=== PATIENT | female | born 1930 | race Caucasian/White ===

== ENCOUNTER 2016-07-10 16:30 | Inpatient (IN) | payer MEDICARE ==
[2016-07-10] VITALS (7 sets, daily range): BP systolic 100–147; BP diastolic 57–90; PULSE 71–109; RESP 18–30; O2SAT 95–98
[~2016-07-10] VITALS: Ht 162.6 cm; Wt 86.1 kg
[~2016-07-10 16:30] MED LIST: CARV25TA2 PO; LEVO75TA36 PO; LOSA50TA37 PO; PANT40TA3 PO; RES15 PO; WARF5TAB7 PO
--- NOTE | 2016-07-10 16:43 | ED.REPORT ---
HPI-Dyspnea / Wheezing Date of Service Jul 10, 2016 ED Provider: Walter Abdul DO Pt is an 85 y/o female anticoagulated on Warfarin w/ a hx of chronic A-fib, ischemic cardiomyopathy, CHF, SARAH, HTN, hyperlipidemia, cerebral aneurysm s/p clipping, presenting to the ED via EMS c/o worsening SOB onset 3-4 days ago. She c/o associated cough, pleuritic abdominal pain, fever. The patient was at a family practice appointment today to have an x-ray at which point her breathing worsened and EMS was called. EMS discovered that her oxygen saturation was i nthe 80s on room air at which point a duoneb was performed which raising her O2 sat to 98%. Pt denies lower extremity edema. She denies history of lung disease , use of home O2, or tobacco use. Nursing Notes Stated Complaint: SOB Nursing Notes Reviewed: Yes Allergies: Coded Allergies: No Known Allergies (Verified , 08/19/15) Scheduled Carvedilol (Carvedilol) 25 Mg Tablet 37.5 MG PO BID Levothyroxine (Levoxyl) Unknown Strength Tablet Unknown Dose PO DAILY Losartan Potassium (Losartan Potassium) 50 Mg Tablet 50 MG PO DAILY Pantoprazole DR (Pantoprazole DR) 40 Mg Tablet.dr 40 MG PO DAILY Warfarin Sodium (Warfarin Sodium) 5 Mg Tablet 5 MG PO 6 days/week Warfarin Sodium (Warfarin Sodium) 5 Mg Tablet 2.5 MG PO Mondays Scheduled PRN Temazepam (Temazepam) 15 Mg Capsule 15-30 MG PO HS PRN PRN For Insomnia General Time Seen by MD: 16:39 Chief Complaint Shortness of breath Hx Obtained From: Patient, EMS Arrived By: Ambulance Sudden in Onset?: No Onset Occurred: 3 days ago Symptom Duration: Since onset Location: : Substernal Quality: Pleuritic Severity: Current: Mild Severity: Maximum: Mild Past Medical History Past Medical History Notes: PCP: Dr. Dion Harper post DC cardioversion 08/14/2015 (Brevital 40 mg for sedation, synchronized 200 J biphasic shock) Past Medical History Cerebral aneurysm in 1979 with clips placed Heart murmur Atrial Fibrillation on Warfarin Ischemic cardiomyopathy History of sleep apnea Reports: Congestive heart failure, Hyperlipidemia, Hypertension Reports: Atrial fibrillation, Thyroid disease Past Surgical History Cerebral aneurysm in 1979 with clips placed Reports: Knee replacement Smoking History Former Smoker Social History Alcohol Use: Denies alcohol use Drug Use: Denies drug use Ambulatory Status Independent Review of Systems Constitutional: Reports: Fever Respiratory: Reports: Non-productive cough, Pleuritic pain, Shortness of breath Cardiovascular: Denies: Chest pain Complete sys rev & neg: except as marked. GI: Denies: Abdominal pain, Nausea, Vomiting Physical Exam Initial Vital Signs Vital Signs (First) Date Time Temp Pulse Resp B/P Pulse Ox O2 Delivery O2 Flow Rate FiO2 07/10/16 16:49 38.3 109 30 143/90 95 Nasal Cannula 2 Initial VS: Reviewed, Vital signs abnormal Head / Eyes: Atraumatic, Normocephalic, PERRL ENT: Mucous membranes moist, Conjunctiva normal, No scleral icterus Abdomen / GI: Soft, Non-tender Extremities: Vascular intact, Neuro intact, No swelling, No tenderness Skin: Warm, Dry, No cyanosis Neurologic: Alert, Oriented, Nonfocal Psychiatric: Mood/affect normal, Behavior normal, Normal thought content General/Constitutional: Awake, Alert, No acute distress, Cooperative, Not toxic appearing Neck: Atraumatic, Supple, No meningismus, Full range of motion Respiratory / Chest: Atraumatic, Breath sounds = bilat, No respiratory distress , No retractions Expiratory wheezes and rales at the bases Cardiovascular: Heart rate NL, Regular rhythm, Heart sounds NL, No gallop, No murmurs, No rubs, Cap refill not delayed, Peripheral circulation NL Interpretation & Diagnostics Lab Results Interpretation Result Diagram: 07/10/16 1723 07/10/16 1723 Test 07/10/16 17:23 White Blood Count 6.7th/mm3 (3.8-10.1) Red Blood Count 3.78mil/mm3 (3.90-5.20) Hemoglobin 12.2g/dL (12.0-15.6) Hematocrit 37.2% (35.0-46.0) Mean Corpuscular Volume 98.4fL (81-100) Mean Corpuscular Hemoglobin 32.3pg (27.0-35.0) Mean Corpuscular Hemoglobin Concent 32.8% (32.0-37.0) Red Cell Distribution Width 12.3% (12.3-15.4) Platelet Count 113bil/L (150-400) Neutrophils (%) (Auto) 74.6% (40-74) Lymphocytes (%) (Auto) 15.6% (14-46) Monocytes (%) (Auto) 8.8% (4-12) Eosinophils (%) (Auto) 0.3% (0-5) Basophils (%) (Auto) 0.6% (0-3) Prothrombin Time 18.7sec (8.1-12.5) Prothromb Time International Ratio 1.73ratio Sodium Level 139mEq/L (134-144) Potassium Level 4.3mEq/L (3.5-5.2) Chloride Level 100mEq/L (97-108) Carbon Dioxide Level 23mmol/L (18-29) Blood Urea Nitrogen 14mg/dL (8-27) Creatinine 0.79mg/dL (0.57-1.00) Estimat Glomerular Filtration Rate 99mL/min (>59) Glucose Level 140mg/dL (60-99) Lactic Acid Level 1.1mmol/L (0.4-2.0) Calcium Level 9.3mg/dL (8.5-10.1) Total Bilirubin 0.4mg/dL (0.0-1.2) Aspartate Amino Transf (AST/SGOT) 21U/L (0-50) Alanine Aminotransferase (ALT/SGPT) 16U/L (0-32) Alkaline Phosphatase 50U/L (25-165) Troponin T < 0.010ug/L (0.0-0.011) Pro-B-Type Natriuretic Peptide 6766pg/mL (0-738) Total Protein 7.3g/dL (6.4-8.4) Albumin 4.4g/dL (3.4-5.0) ECG Interpretation ECG Interpretation: Atrial fibrillation rate 104 LVH with secondary repol abnormality No change from 01/23/16 Time: 17:15 Interpreted by: ED physician Normal ECG Interpretation: No acute ischemic changes, No change from prior ECGs X-Ray Chest Interpretation Chest Xray Interpretation: IMPRESSION: Low lung volumes, with bilateral perihilar atelectasis versus pneumonia. Dictated by: Katty Nicolas M.D. on 07/10/2016 at 18:01 Approved by: Katty Nicolas M.D. on 07/10/2016 at 18:02 View: Portable, 1 view Interpretation / Wet Read by: Interpret - Radiologist Re-Eval/Medical Decision Med Decision/Clinical Course Hypoxia and fever, currently awaiting further evaluation. Care transferred to Dr. Santa Counseled Regarding: Diagnosis, Lab results, Need for admission Discharge & Departure Impression: Primary Impression: Bilateral pneumonia Pneumonia type: due to unspecified organism Lung location: lower lobe of lung Qualified Code: J18.9 - Pneumonia, unspecified organism Additional Impression: CHF (congestive heart failure) Congestive heart failure type: unspecified congestive heart failure type Congestive heart failure chronicity: chronic Qualified Code: I50.9 - Heart failure, unspecified Disposition: ADMITTED TO HOSPITAL Discharge Condition All VS Reviewed: Yes Condition: Stable Referrals: Joey Coyne MD (PCP) Care Transferred to: Dr. Omega Santa Care Transferred at: 18:00 Lincolnibdavid Attestation Portions of this note were transcribed by Diaz Aguirre. I, Dr. Abdul personally performed the history, physical exam and medical decision-making; I reviewed and confirmed the accuracy of the information in the transcribed note. Signed by Samia Mota, 07/10/16 - 1700 copies to: Joey Coyne MD, Timothy S DO Jul 10, 2016 16:43 DIAZ AGUIRRE Jul 10, 2016 16:45
[2016-07-10] MEDS ORDERED: Albuterol-Ipratropium 3 mL Inhalation Solution NEB ONE ×2 (17:10→19:20)
[2016-07-10 17:40] LABS: BASOPHILS % (AUTO) 0.6 % (0-3); EOSINOPHILS % (AUTO) 0.3 % (0-5); MONOCYTES % (AUTO) 8.8 % (4-12); Mean Corpuscular Hemoglobin 32.3 pg (27.0-35.0); Mean Corpuscular Volume 98.4 fL (81-100); NEUTROPHILS % (AUTO) 74.6 % (40-74); Platelet Count 113 bil/L (150-400)
[2016-07-10 17:41] LABS: INR 1.73 ratio
[2016-07-10] MEDS ORDERED: 0.9% Sodium Chloride 1,000 ML IV ONE (17:50)
[2016-07-10 17:51] LABS: TROPONIN T < 0.010 ug/L (0.0-0.011)
--- NOTE | 2016-07-10 18:04 | DRSVH ---
PROCEDURE: X-RAY CHEST ONE VIEW, PORTABLE ([id number]) INDICATIONS: SHORT OF BREATH TECHNIQUE: One view of the chest was acquired. COMPARISON: [facility], CR, XR CHEST 1VW (PORTABLE), 01/23/2016, 8:52. FINDINGS: Surgical changes and devices: None. Lungs and pleura: No pleural effusions or pneumothorax. Lung volumes are low with bilateral perihila r atelectasis versus pneumonia. Mediastinum: Mediastinal contours appear normal. Heart size is normal. Bones and chest wall: No suspicious bony lesions. Overlying soft tissues appear unremarkable. IMPRESSION: Low lung volumes, with bilateral perihilar atelectasis versus pneumonia. Dictated by: Katty Nicolas M.D. on 07/10/2016 at 18:01 Approved by: Katty Nicolas M.D. on 07/10/2016 at 18:02
[2016-07-10] MEDS ORDERED: cefTRIAXone Inj 2,000 MG in Dextrose 5% Minibag Plus 50 ML IV ONE (18:10)
[2016-07-10] MEDS ORDERED: Azithromycin Inj 500 MG in Dextrose 5% w/Vial Mate 250 ML IV ONE (20:05)
[2016-07-10] MEDS ORDERED: FUR20 PO (20:47)
[2016-07-10] MEDS ORDERED: LEVO75TA4 PO (20:47)
[2016-07-10] MEDS ORDERED: SACU1TAB7 PO (20:47)
[2016-07-10] MEDS ORDERED: MULT-140 PO (20:58)
[2016-07-10] MEDS ORDERED: WARF4TAB6 PO (20:58)
[2016-07-10] MEDS ORDERED: IBUP200C PO (20:58)
[2016-07-10] MEDS ORDERED: SODI126M NS (20:59)
[2016-07-10] MEDS ORDERED: Alum-Mag Hydrox-Simeth 30 mL Suspension PO PRN (21:35)
[2016-07-10] MEDS ORDERED: Polyethylene Glycol (PEG) 17 Gm Powder PO PRN (21:35)
[2016-07-10] MEDS: 0.9% Sodium Chloride 1,000 ML IV SCH ×2 (21:35→22:33)
[2016-07-10 22:09] LABS: Magnesium 1.9 mg/dL (1.6-2.6)
[2016-07-10] MEDS ORDERED: Azithromycin Inj 500 MG in Dextrose 5% w/Vial Mate 250 ML IV SCH (22:30)
[2016-07-10] MEDS ORDERED: Sodium Chloride NAS 45 mL Spray NASAL PRN (23:45)
--- NOTE | 2016-07-10 23:46 | PCM.HPMED ---
Subjective Date of Service Jul 10, 2016 Primary Provider: Admitting Physician: Aleena Rebolledo MD Primary Care Physician: Joey Coyne MD Attending Physician: Aleena Rebolledo MD Admit Status: From the Emergency Department Chief Complaint: cough History of Present Illness: 85-year-old female patient with history of atrial fibrillation on chronic anticoagulation, CHF, hypothyroidism and hypertension presented to the ER for worsening cough and shortness of breath. Patient reports that approximately 1-1 /2 weeks ago she began experiencing chest tightness, fatigue, worsening dry cough. She states that she was seen by her primary care provider this morning and had an x-ray, but states she was not informed of any pneumonia present on the chest x-ray. Patient reports that she went home to [place] but noticed that she was having increasing difficulty with her breathing and asked her manager media to bring her to the ER. Patient denies any fevers, chills, sore throat , nausea, vomiting or diarrhea. Patient reports chronic constipation. Patient reports she has not consumed much food today, and notes that she only has some appetite. Patient reports that she has chronic nasal congestion and sneezing which she uses nasal saline drops to assist. Patient denies any headache, otalgia, or myalgias. Patient does report that her chest wall has been causing her pain, which she attributes to her constant coughing. She reports that she feels short of breath but denies needing supplemental oxygen at home. Vital signs in the ER, temperature 38.3, pulse 109, respiratory rate 30, blood pressure 143/90, pulse ox 95 on nasal cannula 2 L Review of Systems: A comprehensive review of systems was conducted with the patient and found to be negative except as above in the History of Present Illness. Allergies Coded Allergies: No Known Allergies (Verified , 07/10/16) Home Medications Carvedilol 25 mg, 1.5 tablets twice a day Entresto 49 mg 51 mg tablet, 1 tablet twice a day Furosemide 40 mg 1 tablet daily when necessary Levothyroxin 50 MCG, 1 tablet daily Pantoprazole 40 mg, 1 tablet daily Temazepam 15 mg 1 tablet daily at bedtime Warfarin 5-7.5 mg daily Cholestyramine 4 g daily Triamcinolone as needed PMH Congestive heart failure--- most recent echo 06/04/2016 Nonischemic cardiomyopathy Major depressive disorder Hypertension Hypothyroidism Atrial fibrillation Chronic anticoagulation with warfarin Chronic knee pain Benign paroxysmal vertigo Obstructive sleep apnea Hyperlipidemia GERD Insomnia Cerebral aneurysm, 1985 Osteoarthritis Restless leg syndrome Surgical History Total knee surgery Cerebral aneurysm requiring clipping Unilateral oophorectomy Appendectomy Tonsillectomy Lens implantation Cardiac catheterization 2007 Family History Father-congestive heart failure, myocardial infarction Mother-healthy Siblings-renal failure, cancer, cardiac arrest Social History 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 ) Hx Substance Use: No Hx Tobacco Use: Yes (quit smoking in 1978, smoked for 20 years 1-2 packs daily) Smoking Status: Former Smoker Living Arrangement: Assisted Living ([place]) Exam Vital Signs Vital Sign - Last Date Time Temp Pulse Resp B/P Pulse Ox O2 Delivery O2 Flow Rate FiO2 07/10/16 22:02 36.7 85 18 114/80 95 Nasal Cannula 3.00 Exam General: No acute distress, well-developed, well-nourished, appropriately interactive HEENT: Normocephalic, atraumatic. External ears without defect. Pupils equal, round, and reactive to light and accommodation. Moist conjunctivae. Oropharynx with moist mucosa. Neck: Supple with full range of motion.No lymphadenopathy Cardiovascular: Regular rate and rhythm with no murmurs, rubs, or gallops appreciated Pulmonary: Mild crackles bilaterally at bases and diffuse end-expiratory wheezes bilaterally. Normal respiratory effort with no use of accessory muscles. Abdomen: Bowel tones present. Soft, nontender, nondistended. Extremities: No clubbing, cyanosis, edema, appreciated. Skin: Normal temperature, turgor, and texture; no rash, ulcers, or subcutaneous nodules appreciated. Psychiatric: Normal mood and affect. Alert and oriented to person, place, and time. Lab and Diagnostics Result Diagram: 07/10/16 1723 07/10/16 1723 Microbiology Microbiology [facility] INFLUENZA RAPID AG SCREEN Final 07/10/16-2005 RESULT POSITIVE FOR FLU A NEGATIVE FOR FLU B This rapid assay is a screen test only for Influenza A&B and does not definitively rule out the presence of FLU A & B or other respiratory viral pathogens. The assay's sensitivity varies on the specimen type submitted. Nasal washes are optimum. Recommend respiratory viral cultures and DFA to confirm negative screens and rule out other viral pathogens. Per CDC, the sensitivity of this method is approximately 50% for H1N1. A negative result does NOT rule out Novel H1N1 (Swine Flu) TIME CALLED: 2004 FLOOR/DOCTOR: SRI/JJ Busch X-Rays, CTs and MRIs PROCEDURE: X-RAY CHEST ONE VIEW, PORTABLE ([id number]) INDICATIONS: SHORT OF BREATH TECHNIQUE: One view of the chest was acquired. COMPARISON: [facility], CR, XR CHEST 1VW (PORTABLE), 01/23/2016, 8: 52. FINDINGS: Surgical changes and devices: None. Lungs and pleura: No pleural effusions or pneumothorax. Lung volumes are low with bilateral perihilar atelectasis versus pneumonia. Mediastinum: Mediastinal contours appear normal. Heart size is normal. Bones and chest wall: No suspicious bony lesions. Overlying soft tissues appear unremarkable. IMPRESSION: Low lung volumes, with bilateral perihilar atelectasis versus pneumonia. Dictated by: Katty Nicolas M.D. on 07/10/2016 at 18:01 Approved by: Katty Nicolas M.D. on 07/10/2016 at 18:02 Assessment & Plan Acute influenza A, present on admission, ongoing -Positive rapid flu swab for Flu A. Pt reports getting the influenza vaccine this season. -Patient received a dose of Tamiflu 75 mg in the ER -Patient to continue with Tamiflu 75 mg twice a day for 10 doses -Isolation precautions in place -Supportive care Acute community acquired pneumonia, present on admission, ongoing -Chest x-ray in ER demonstrating bilateral perihilar elective cyst versus pneumonia -No leukocytosis, normal lactic acid, normal pro-calcitonin -Patient received azithromycin and ceftriaxone in the ER, we will continue with these therapies -Legionella and strep pneumoniae pending, blood cultures pending -MRSA screen pending, sputum cultures pending -Duo nebs 4 times a day while awake, albuterol nebs every 2 hours when necessary -Continue to monitor -Gentle hydration with NS 60mls/hr. Chronic atrial fibrillation, presumed stable -Patient is managed by Dr. Doug Crow of cardiology -Continue home dose of carvedilol -Continue warfarin, pharmacy to dose Chronic congestive heart failure, presumed stable -Outpatient records demonstrate most recent echo was 06/04/2016. Demonstrated EF of 35-40%. Moderate global hypokinesis left ventricle. Left and right atrium dilated. Moderate MR, mild aortic stenosis, moderate aortic regurgitation. -Patient is receiving gentle hydration with NS 60mls/hr -We will continue to monitor for fluid overload Chronic hypothyroidism, presumed stable -Continue home dose of levothyroxine Chronic hypertension, presumed stable -Continue home dose of Entresto GERD -Continue home dose of pantoprazole PCP: Dr. Joey Coyne Cardiology: Dr. Doug Crow CODE STATUS: Compressions and Cardioversion OK. DO NOT INTUBATE. Patient is admitted under inpatient status with expected length of stay greater than 2 midnights due to severity of presenting symptoms, risk of adverse event, and complexity of treatment plan. VTE Prophylaxis: Theraputic Anticoag with Warfarin Resuscitation Status: Limited Interventions Limited Interventions: Compressions, Cardioversion/Defibrillation copies to: Joey Coyne MD, Tara L DO Jul 10, 2016 23:03
[2016-07-11] VITALS (16 sets, daily range): BP systolic 103–145; BP diastolic 55–84; PULSE 66–94; RESP 17–22; O2SAT 92–96
--- NOTE | 2016-07-11 00:29 | NUR ---
ADMIT NOTE/ARRIVAL TO [facility] Admission info and med rec completed in ER prior to pt arriving to [facility]. Pt is alert and oriented. Pt arrived to [facility] 3030 approx 2200. Pt able to ambulate from ER stretcher to bed. Pt transported on 3L. Pt changed to wall oxygen, 3L humidified, decreased to 2L. Pt has SARAH, pt asked family to bring in CPAP. Pt on oxygen and CPOx. VS obtained. Pt placed on remote telemetry, monitoring manager notified. Pt on droplet precautions for + Influenza A, contact precautions for R/O MRSA per nasal swab screen. Admit MD called to order home medications, medications ordered and administered. Pt asked to bring in home medication Entresto, as pharmacy does not stock. Continue to monitor. Call light in reach. Intentional rounding.
[2016-07-11] MEDS: Albuterol-Ipratropium 3 mL Inhalation Solution NEB SCH ×5 (01:13→20:41)
--- NOTE | 2016-07-11 01:44 | PCM.CONPHA ---
Subjective Date of Service: Jul 10, 2016 Requesting Provider: Tayler Huntley Reason for Pharmacy Consult: Anticoagulation Management Objective Vital Signs Date Time Temp Pulse Resp B/P Pulse Ox O2 Delivery O2 Flow Rate FiO2 07/11/16 01:14 74 22 96 Nasal Cannula 2.00 07/11/16 01:04 37.1 75 18 103/55 96 Nasal Cannula 2.00 07/10/16 23:13 71 98 Nasal Cannula 2.00 07/10/16 22:49 Supplement Oxygen 07/10/16 22:02 36.7 85 18 114/80 95 Nasal Cannula 3.00 07/10/16 21:50 83 25 100/57 96 Nasal Cannula 3 07/10/16 20:26 38 95 23 111/64 95 Nasal Cannula 3 07/10/16 18:01 97 24 147/88 95 Nasal Cannula 2 07/10/16 17:43 100 24 97 07/10/16 16:49 38.3 109 30 143/90 95 Nasal Cannula 2 Intake and Output 07/09/16 07/10/16 07/11/16 00:00 00:00 00:00 Intake Total 1000 ml Balance 1000 ml Weight (Kilograms): 86.800 Height (Feet): 5 Height (Inches): 4.00 Test 07/10/16 17:23 White Blood Count 6.7th/mm3 (3.8-10.1) Red Blood Count 3.78mil/mm3 (3.90-5.20) Hemoglobin 12.2g/dL (12.0-15.6) Hematocrit 37.2% (35.0-46.0) Mean Corpuscular Volume 98.4fL (81-100) Mean Corpuscular Hemoglobin 32.3pg (27.0-35.0) Mean Corpuscular Hemoglobin Concent 32.8% (32.0-37.0) Red Cell Distribution Width 12.3% (12.3-15.4) Platelet Count 113bil/L (150-400) Neutrophils (%) (Auto) 74.6% (40-74) Lymphocytes (%) (Auto) 15.6% (14-46) Monocytes (%) (Auto) 8.8% (4-12) Eosinophils (%) (Auto) 0.3% (0-5) Basophils (%) (Auto) 0.6% (0-3) Prothrombin Time 18.7sec (8.1-12.5) Prothromb Time International Ratio 1.73ratio D-Dimer < 0.5mg/L (<0.50) Sodium Level 139mEq/L (134-144) Potassium Level 4.3mEq/L (3.5-5.2) Chloride Level 100mEq/L (97-108) Carbon Dioxide Level 23mmol/L (18-29) Blood Urea Nitrogen 14mg/dL (8-27) Creatinine 0.79mg/dL (0.57-1.00) Estimat Glomerular Filtration Rate 99mL/min (>59) Glucose Level 140mg/dL (60-99) Lactic Acid Level 1.1mmol/L (0.4-2.0) Calcium Level 9.3mg/dL (8.5-10.1) Magnesium Level 1.9mg/dL (1.6-2.6) Total Bilirubin 0.4mg/dL (0.0-1.2) Aspartate Amino Transf (AST/SGOT) 21U/L (0-50) Alanine Aminotransferase (ALT/SGPT) 16U/L (0-32) Alkaline Phosphatase 50U/L (25-165) Troponin T < 0.010ug/L (0.0-0.011) Pro-B-Type Natriuretic Peptide 6766pg/mL (0-738) Total Protein 7.3g/dL (6.4-8.4) Albumin 4.4g/dL (3.4-5.0) Procalcitonin 0.05ng/mL (0.00-0.08) Assessment/Plan Assessment/Plan A: * Warfarin dosing by pharmacy for 85 y/o woman with chronic atrial fibrillation * She is here for influenza and pneumonia * Pertinent history includes CHF and HTN * The patient takes warfarin 4 mg daily * INR on 07/10 is subtherapeutic at 1.73 * Significant drug interactions with warfarin include azithromycin and ceftriaxone P: * Giving one dose of warfarin 4 mg * Target INR range of 2 - 3 * Pharmacy to determine further dosing based on INR results Thank you. Pharmacy will continue to follow this patient. Yaritza Sheth, PharmD Yaritza Sheth Jul 11, 2016 01:44
--- NOTE | 2016-07-11 06:36 | NUR ---
OXYGEN NEEDS Pt has been on 2L for most of shift. Towards end of shift, pt states, "I can't stand this oxygen, I want if off." Pt trialed on RA. Pts oxygen saturation occasionally 88-89% on RA, but up to low 90s when awake. When pt asleep, pt unable to maintain oxygen saturations above 90%. Pt placed back on oxygen, now at 1L, 93%. CPOx in use. Continue to monitor.
[2016-07-11 07:00] LABS: BASOPHILS % (AUTO) 0.5 % (0-3); EOSINOPHILS % (AUTO) 0.7 % (0-5); MONOCYTES % (AUTO) 14.5 % (4-12); Mean Corpuscular Hemoglobin 32.9 pg (27.0-35.0); Mean Corpuscular Volume 100.6 fL (81-100); NEUTROPHILS % (AUTO) 62.3 % (40-74); Platelet Count 86 bil/L (150-400)
[2016-07-11 07:25] LABS: INR 1.62 ratio
--- NOTE | 2016-07-11 07:42 | PCM.PHAPRO ---
Progress cough NTV RTM 1-Jul 2-Jul 1.73 1.62 -0.11 4 4 Adam Cordon Jul 11, 2016 07:42
[2016-07-11] MEDS: Pantoprazole 40 mg ER24 Tablet PO SCH (07:47)
[2016-07-11] MEDS ORDERED: POTA10TA38 PO (10:01)
[2016-07-11] MEDS ORDERED: QUE9 PO (10:02)
[2016-07-11] MEDS ORDERED: KEN25CR EXT (10:03)
[2016-07-11] MEDS ORDERED: LOSA50TA37 PO (10:04)
[2016-07-11] MEDS: Sacubitril/Valsartan (Entresto 49 mg-51 mg Tablet) PO SCH ×3 (11:20→20:04)
[2016-07-11] MEDS: Albuterol 2.5 mg/3 mL Inhalation Solution NEB PRN ×2 (11:56→23:17)
[2016-07-11 14:14] LABS: COLOR,URINE YELLOW (YELLOW)
[2016-07-11 14:15] LABS: APPEARANCE,URINE CLEAR (CLEAR,HAZY); OCCULT BLOOD,URINE TRACE (NEGATIVE); UROBILINOGEN,URINE NORMAL (NORMAL)
--- NOTE | 2016-07-11 15:13 | NUR ---
Social Work: Initial Assessment Data: Pt is an 85 y/o female admitted for pneumonia with hypoxia. Pt's PCP is Dr Coyne, pt's insurance is Medicare with [employer] supp. Readmit score not listed. EMR reviewed. MOLD STRIPPER met with pt at bedside, role explained. Pt states that she lives at [facility] where there are no stairs and she uses a Cpap and owns a walker, but rarely uses it. Pt sates she drives, has no hx of HH, has been to [facility], and has LT insurance. Pt states she has no VA benefits and is not a caregiver. Pt states she has been up in her room moving around a bit. Pt agreeable to HH if needed. HH choice list given. Pt states no preference of company if needed. MOLD STRIPPER will continue to follow for possible HH need. Pt reports having a DPOA/AD, MOLD STRIPPER requested a copy for hospital. Assessment: Pt who is independent at baseline. Plan: Pt will d/c home via POV when medically stable with possible HH. MOLD STRIPPER will continue to follow. DEENA Castillo Addendum: 07/11/16 at 1517 by ILAINA HUBBARD Amended: Links added.
--- NOTE | 2016-07-11 15:47 | PCM.PNMED ---
Subjective Date of Service Jul 11, 2016 Subjective says overall feeling better. had some chills last night. main complaint this am is nasal congestion Exam Vital Signs Vital Sign - Last Date Time Temp Pulse Resp B/P Pulse Ox O2 Delivery O2 Flow Rate FiO2 07/11/16 14:45 Supplement Oxygen 07/11/16 13:37 36.8 76 18 131/74 94 0.50 Intake and Output 07/10/16 07/10/16 07/11/16 Cumulative From/Thru 15:00 23:00 07:00 07/10/16 16:49 - 07/11/16 06:31 Intake Total 1000 ml 583 ml 1583 ml Balance 1000 ml 583 ml 1583 ml Intake Oral 200 ml 200 ml IV Total 1000 ml 383 ml 1383 ml # Voids 2 2 General: Alert, Oriented X3, Cooperative, No Acute Distress Head: Normal Eyes: Scleral Anicteric Nose: Mucous Membr Moist/[place] Mouth: Mucous Membr Moist/[place] Neck: Supple Chest & Lungs: Chest Wall Normal, Expiratory wheezes (mild bilat) Cardiovascular: Regular Rate/Rhythm Abdomen: Non-tender, Non-distended, Normoactive bowel tones, Soft Extremities: No cyanosis/clubbing/edma bilat Neurological: Grossly Neurologically Intact, Normal Speech IVs and Medications Medications Reviewed: Medications were reviewed in detail Lab and Diagnostics Result Diagram: 07/11/1664707/11/16647 Microbiology Microbiology [facility] INFLUENZA RAPID AG SCREEN Final 07/10/16-2005 RESULT POSITIVE FOR FLU A NEGATIVE FOR FLU B This rapid assay is a screen test only for Influenza A&B and does not definitively rule out the presence of FLU A & B or other respiratory viral pathogens. The assay's sensitivity varies on the specimen type submitted. Nasal washes are optimum. Recommend respiratory viral cultures and DFA to confirm negative screens and rule out other viral pathogens. Per CDC, the sensitivity of this method is approximately 50% for H1N1. A negative result does NOT rule out Novel H1N1 (Swine Flu) TIME CALLED: 2004 FLOOR/DOCTOR: SRI/JJ Busch X-Rays, CTs and MRIs PROCEDURE: X-RAY CHEST ONE VIEW, PORTABLE ([id number]) INDICATIONS: SHORT OF BREATH TECHNIQUE: One view of the chest was acquired. COMPARISON: [facility], CR, XR CHEST 1VW (PORTABLE), 01/23/2016, 8: 52. FINDINGS: Surgical changes and devices: None. Lungs and pleura: No pleural effusions or pneumothorax. Lung volumes are low with bilateral perihilar atelectasis versus pneumonia. Mediastinum: Mediastinal contours appear normal. Heart size is normal. Bones and chest wall: No suspicious bony lesions. Overlying soft tissues appear unremarkable. IMPRESSION: Low lung volumes, with bilateral perihilar atelectasis versus pneumonia. Dictated by: Katty Nicolas M.D. on 07/10/2016 at 18:01 Approved by: Katty Nicolas M.D. on 07/10/2016 at 18:02 Assessment & Plan 85-year-old female patient with history of atrial fibrillation on chronic anticoagulation, CHF, hypothyroidism and hypertension presented to the ER for worsening cough and shortness of breath. Patient reports that approximately 1-1 /2 weeks ago she began experiencing chest tightness, fatigue, worsening dry cough. She states that she was seen by her primary care provider this morning and had an x-ray, but states she was not informed of any pneumonia present on the chest x-ray. Patient reports that she went home to [place] but noticed that she was having increasing difficulty with her breathing and asked her credentialing manager to bring her to the ER. # Acute influenza A, present on admission, ongoing - Positive rapid flu swab for Flu A - continue with Tamiflu 75 mg twice a day for 10 doses - Supportive care # Suspected acute community acquired pneumonia, present on admission - Bacterial pneumonia clinically appears unlikely. No leukocytosis, normal lactic acid, normal pro-calcitonin - Patient received azithromycin and ceftriaxone on admission - stop Abx and f/u clinically - Legionella and strep pneumoniae negative - c/w DuoNeb while awake, albuterol nebs every 2 hours when necessary # Chronic atrial fibrillation, presumed stable - Patient is managed by Dr. Doug Crow as outpatient - Continue home dose of carvedilol - Continue warfarin, pharmacy to dose - f/u daily INR (currently subtherapeutic) # Chronic congestive heart failure, presumed stable - Outpatient records demonstrate most recent echo was 06/04/2016. Demonstrated EF of 35-40%. Moderate global hypokinesis left ventricle. Left and right atrium dilated. Moderate MR, mild aortic stenosis, moderate aortic regurgitation. - We will continue to monitor for fluid overload # Chronic hypothyroidism, presumed stable - Continue home dose of levothyroxine # Chronic hypertension, presumed stable - Continue home dose of Entresto # GERD - Continue home dose of pantoprazole VTE Prophylaxis: Theraputic Anticoag with Warfarin Resuscitation Status: Limited Interventions Limited Interventions: Compressions, Cardioversion/Defibrillation Time spent 30 min Osvaldo Cho Jul 11, 2016 15:47
[2016-07-11] MEDS ORDERED: cefTRIAXone Inj 2,000 MG in Dextrose 5% Minibag Plus 50 ML IV SCH ×4 (18:30)
[2016-07-11] MEDS ORDERED: Azithromycin Inj 500 MG in Dextrose 5% w/Vial Mate 250 ML IV SCH (20:30)
[2016-07-12] VITALS (11 sets, daily range): BP systolic 125–136; BP diastolic 64–88; PULSE 65–92; RESP 18–22; O2SAT 92–94
[2016-07-12] MEDS: Albuterol 2.5 mg/3 mL Inhalation Solution NEB PRN (05:59)
[2016-07-12 06:56] LABS: BASOPHILS % (AUTO) 0.5 % (0-3); EOSINOPHILS % (AUTO) 1.6 % (0-5); MONOCYTES % (AUTO) 14.3 % (4-12); Mean Corpuscular Hemoglobin 32.3 pg (27.0-35.0); Mean Corpuscular Volume 99.2 fL (81-100); NEUTROPHILS % (AUTO) 50.9 % (40-74); Platelet Count 105 bil/L (150-400)
[2016-07-12 07:11] LABS: INR 1.66 ratio
[2016-07-12] MEDS: Albuterol-Ipratropium 3 mL Inhalation Solution NEB SCH ×4 (07:35→19:51)
[2016-07-12] MEDS: Pantoprazole 40 mg ER24 Tablet PO SCH (08:27)
[2016-07-12] MEDS: Sacubitril/Valsartan (Entresto 49 mg-51 mg Tablet) PO SCH ×2 (08:29→19:46)
--- NOTE | 2016-07-12 09:28 | NUR ---
PARESH signed DEENA Castillo
--- NOTE | 2016-07-12 11:40 | PCM.CONPHA ---
Subjective Date of Service: Jul 12, 2016 atrial fibrillation Reason for Pharmacy Consult: Anticoagulation Management Objective Vital Signs Date Time Temp Pulse Resp B/P Pulse Ox O2 Delivery O2 Flow Rate FiO2 07/12/16 09:51 69 22 92 Nasal Cannula 07/12/16 09:00 CPAP/BIPAP 07/12/16 08:53 37.2 71 20 125/64 93 Room Air 07/12/16 08:00 73 07/12/16 06:00 75 18 93 Room Air 07/12/16 01:19 36.4 71 18 128/68 94 Room Air 07/11/16 23:17 94 18 94 Room Air 07/11/16 21:20 36.4 78 18 133/77 92 CPAP 07/11/16 21:01 CPAP/BIPAP 07/11/16 20:42 85 18 93 Room Air 07/11/16 20:00 91 07/11/16 17:08 36.8 85 18 145/84 93 Room Air 07/11/16 16:24 74 18 96 Nasal Cannula 0.50 07/11/16 14:45 Supplement Oxygen 07/11/16 13:37 36.8 76 18 131/74 94 Nasal Cannula 0.50 07/11/16 11:57 76 18 94 Nasal Cannula 0.50 Intake and Output 07/10/16 07/11/16 07/12/16 00:00 00:00 00:00 Intake Total 1000 ml 1183 ml Balance 1000 ml 1183 ml Weight (Kilograms): 85.900 Height (Feet): 5 Height (Inches): 4.00 Test 07/10/16 17:23 07/11/16 06:48 07/11/16 14:00 07/12/16 06:40 D-Dimer < 0.5mg/L (<0.50) Hemoglobin A1c 5.6% (4.8-5.6) Lactic Acid Level 1.1mmol/L (0.4-2.0) Magnesium Level 1.9mg/dL (1.6-2.6) Troponin T < 0.010ug/L (0.0-0.011) Pro-B-Type Natriuretic Peptide 6766pg/mL (0-738) Sodium Level 140mEq/L (134-144) Potassium Level 4.0mEq/L (3.5-5.2) Chloride Level 104mEq/L (97-108) Carbon Dioxide Level 25mmol/L (18-29) Blood Urea Nitrogen 14mg/dL (8-27) Creatinine 0.73mg/dL (0.57-1.00) Estimat Glomerular Filtration Rate 109mL/min (>59) Glucose Level 98mg/dL (60-99) Calcium Level 8.3mg/dL (8.5-10.1) Total Bilirubin 0.3mg/dL (0.0-1.2) Aspartate Amino Transf (AST/SGOT) 18U/L (0-50) Alanine Aminotransferase (ALT/SGPT) 11U/L (0-32) Alkaline Phosphatase 38U/L (25-165) Total Protein 5.6g/dL (6.4-8.4) Albumin 3.7g/dL (3.4-5.0) Procalcitonin 0.19ng/mL (0.00-0.08) Urine Color Yellow (YELLOW) Urine Appearance Clear (CLEAR,HAZY) Urine pH 6.0 (5.0-8.0) Urine Specific [place] 1.020 (1.003-1.035) Urine Protein Negativemg/dL (NEG,TRACE) Urine Glucose (UA) Negativemg/dL (NEGATIVE) Urine Ketones Negativemg/dL (NEGATIVE) Urine Occult Blood Trace (NEGATIVE) Urine Nitrite Negative (NEGATIVE) Urine Bilirubin Negative (NEGATIVE) Urine Urobilinogen Normalmg/dL (NORMAL) Urine Leukocyte Esterase Negative (NEGATIVE) Urine RBC 0-2/hpf (0-2) Urine WBC 0-5/hpf (0-5) Urine Epithelial Cells Occasional/hpf (NONE-MOD) Urine Crystals None seen (NONE SEEN) Urine Bacteria Few/hpf (NONE-FEW) Urine Hyaline Casts None/lpf (NONE) Urine Granular Casts None seen (NONE SEEN) Urine Waxy Casts None seen (NONE SEEN) Urine Red Blood Cell Casts None seen (NONE SEEN) Urine White Blood Cell Casts None seen (NONE SEEN) Urine Mucus None seen (None Seen) Urine Trichomonas None seen (NONE SEEN) Urine Yeast None (NONE SEEN) Urinalysis Comment None Urine Culture Reflexed Not indicated Urine Legionella pneumophilia Ag Negative (Negative) White Blood Count 4.4th/mm3 (3.8-10.1) Red Blood Count 3.59mil/mm3 (3.90-5.20) Hemoglobin 11.6g/dL (12.0-15.6) Hematocrit 35.6% (35.0-46.0) Mean Corpuscular Volume 99.2fL (81-100) Mean Corpuscular Hemoglobin 32.3pg (27.0-35.0) Mean Corpuscular Hemoglobin Concent 32.6% (32.0-37.0) Red Cell Distribution Width 12.3% (12.3-15.4) Platelet Count 105bil/L (150-400) Neutrophils (%) (Auto) 50.9% (40-74) Lymphocytes (%) (Auto) 32.5% (14-46) Monocytes (%) (Auto) 14.3% (4-12) Eosinophils (%) (Auto) 1.6% (0-5) Basophils (%) (Auto) 0.5% (0-3) Prothrombin Time 17.9sec (8.1-12.5) Prothromb Time International Ratio 1.66ratio Assessment/Plan Assessment/Plan Assessment: * Patient is needing warfarin management for atrial fibrillation. * Patient received warfarin 4 mg on 07/11/16 after the INR dropped slightly to 1.62 * Patient's INR goal range: 2-3 * Patient's INR on 07/12/16: 1.66 * Patient's INR remains below the goal range, but is moving in the right direction after the first 2 doses. Plan: * Will give warfarin 4 mg on 07/12/16 and will reevaluate with the PT/INR tomorrow. * Will continue to follow. Jem Cooney Jul 12, 2016 11:40
[2016-07-12] MEDS: predniSONE 20 mg Tablet PO SCH (12:47)
--- NOTE | 2016-07-12 16:26 | PCM.PNMED ---
Subjective Date of Service Jul 12, 2016 Subjective complains of generalized weakness and worsening SOB Exam Vital Signs Vital Sign - Last Date Time Temp Pulse Resp B/P Pulse Ox O2 Delivery O2 Flow Rate FiO2 07/12/16 14:06 36.4 71 18 129/79 92 Room Air 07/11/16 16:24 0.50 Intake and Output 07/11/16 07/11/16 07/12/16 Cumulative From/Thru 15:00 23:00 07:00 07/10/16 16:49 - 07/12/16 06:46 Intake Total 600 ml 400 ml 2583 ml Output Total 550 ml 550 ml Balance 600 ml -150 ml 2033 ml Intake Oral 600 ml 400 ml 1200 ml IV Total 1383 ml Output Urine Total 550 ml 550 ml # Voids 3 5 Exam General: Alert, Oriented X3, Cooperative, No Acute Distress Head: Normal Eyes: Scleral Anicteric Nose: Mucous Membr Moist/[place] Mouth: Mucous Membr Moist/[place] Neck: Supple Chest & Lungs: Chest Wall Normal, Expiratory/inspiratory wheezes bilat (worse than yesterday) Cardiovascular: Regular Rate/Rhythm Abdomen: Non-tender, Non-distended, Normoactive bowel tones, Soft Extremities: No cyanosis/clubbing/edema bilat Neurological: Grossly Neurologically Intact, Normal Speech IVs and Medications Medications Reviewed: Medications were reviewed in detail Lab and Diagnostics Result Diagram: 07/12/16 0640 07/11/16 0648 Microbiology Microbiology [facility] INFLUENZA RAPID AG SCREEN Final 07/10/16-2005 RESULT POSITIVE FOR FLU A NEGATIVE FOR FLU B This rapid assay is a screen test only for Influenza A&B and does not definitively rule out the presence of FLU A & B or other respiratory viral pathogens. The assay's sensitivity varies on the specimen type submitted. Nasal washes are optimum. Recommend respiratory viral cultures and DFA to confirm negative screens and rule out other viral pathogens. Per CDC, the sensitivity of this method is approximately 50% for H1N1. A negative result does NOT rule out Novel H1N1 (Swine Flu) TIME CALLED: 2004 FLOOR/DOCTOR: SRI/JJ Busch X-Rays, CTs and MRIs PROCEDURE: X-RAY CHEST ONE VIEW, PORTABLE ([id number]) INDICATIONS: SHORT OF BREATH TECHNIQUE: One view of the chest was acquired. COMPARISON: [facility], CR, XR CHEST 1VW (PORTABLE), 01/23/2016, 8: 52. FINDINGS: Surgical changes and devices: None. Lungs and pleura: No pleural effusions or pneumothorax. Lung volumes are low with bilateral perihilar atelectasis versus pneumonia. Mediastinum: Mediastinal contours appear normal. Heart size is normal. Bones and chest wall: No suspicious bony lesions. Overlying soft tissues appear unremarkable. IMPRESSION: Low lung volumes, with bilateral perihilar atelectasis versus pneumonia. Dictated by: Katty Nicolas M.D. on 07/10/2016 at 18:01 Approved by: Katty Nicolas M.D. on 07/10/2016 at 18:02 Assessment & Plan 85-year-old female patient with history of atrial fibrillation on chronic anticoagulation, CHF, hypothyroidism and hypertension presented to the ER for worsening cough and shortness of breath. Patient reports that approximately 1-1 /2 weeks ago she began experiencing chest tightness, fatigue, worsening dry cough. She states that she was seen by her primary care provider this morning and had an x-ray, but states she was not informed of any pneumonia present on the chest x-ray. Patient reports that she went home to [place] [employer] but noticed that she was having increasing difficulty with her breathing and asked her energy and sustainability manager to bring her to the ER. # Acute influenza A, present on admission, ongoing - Positive rapid flu swab for Flu A - continue with Tamiflu 75 mg twice a day for 10 doses - Supportive care # pulmonary congestion and SOB initially Suspected acute community acquired pneumonia but likely 2ndry to acute influenza noted above. present on admission - Bacterial pneumonia clinically appears unlikely. No leukocytosis, normal lactic acid, normal pro-calcitonin - Patient received azithromycin and ceftriaxone on admission - hold Abx and f/u clinically - Legionella and strep pneumoniae negative - c/w DuoNeb while awake, albuterol nebs every 2 hours when necessary - start short course of Prednisone and f/u # Chronic atrial fibrillation, presumed stable - Patient is managed by Dr. Doug Crow as outpatient - Continue home dose of carvedilol - Continue warfarin, pharmacy to dose - f/u daily INR (currently subtherapeutic) # Chronic congestive heart failure, presumed stable - Outpatient records demonstrate most recent echo was 06/04/2016. Demonstrated EF of 35-40%. Moderate global hypokinesis left ventricle. Left and right atrium dilated. Moderate MR, mild aortic stenosis, moderate aortic regurgitation. - We will continue to monitor for fluid overload # Chronic hypothyroidism, presumed stable - Continue home dose of levothyroxine # Chronic hypertension, presumed stable - Continue home dose of Entresto # GERD - Continue home dose of pantoprazole Dispo: 1-2 days VTE Prophylaxis: Theraputic Anticoag with Warfarin Resuscitation Status: Limited Interventions Limited Interventions: Compressions, Cardioversion/Defibrillation Time spent 30 min Osvaldo Cho Jul 12, 2016 16:26
--- NOTE | 2016-07-12 19:00 | NUR ---
Breathing/Lung sounds /Activity: Patients lung sounds have improved since this morning. She was started on steroids this afternoon. Her lungs sound noticeably less wheezy and coarse on expiration. Patient ambulated in the [facility] [place] with the FWW with the nurse this evening without issues. Her MRSA nasal swab was negative. She is on Droplet precautions for influenza A.
--- NOTE | 2016-07-12 23:02 | NUR ---
headache Pt complained of headache, tylenol given with good results. Left room with call light at bedside.
[2016-07-13] VITALS (12 sets, daily range): BP systolic 127–137; BP diastolic 64–79; PULSE 60–93; RESP 18–22; O2SAT 92–98
[2016-07-13] MEDS: Albuterol-Ipratropium 3 mL Inhalation Solution NEB SCH ×4 (06:00→19:55)
[2016-07-13 06:14] LABS: INR 1.72 ratio
[2016-07-13] MEDS: Pantoprazole 40 mg ER24 Tablet PO SCH (08:44)
[2016-07-13] MEDS: predniSONE 20 mg Tablet PO SCH (08:44)
[2016-07-13] MEDS: Sacubitril/Valsartan (Entresto 49 mg-51 mg Tablet) PO SCH ×2 (08:47→20:05)
--- NOTE | 2016-07-13 12:10 | PCM.PHAPRO ---
Progress Warfarin Management by Pharmacy: -Indication: afib -Inr Goal: 2-3 -concurrent anticoagulation: none -Home Dose: warfarin 4mg -Coag Trends: NTV RTM WLG SLF 1-Jul 2-Jul 3-Jul 13-Jul 1.73 1.62 1.66 1.72 -0.11 0.04 0.06 4 4 4 4MG -Plan: inr is progressing to goal. will continue with warfarin 4mg this evening and monitor Milena Dee [facility] Jul 13, 2016 12:10
--- NOTE | 2016-07-13 16:55 | NUR ---
Discharge plan Pt wants to wait until Friday morning to discharge. She feels that it would be better for her that way. Pt started on IS, Educated how to use IS and goal of 1500 10x hour. Pt has been ambulating independent in room and to BR.
--- NOTE | 2016-07-13 17:17 | PCM.PNMED ---
Subjective Date of Service Jul 13, 2016 Subjective complains of generalized weakness. denies any new issues/complaints Exam Vital Signs Vital Sign - Last Date Time Temp Pulse Resp B/P Pulse Ox O2 Delivery O2 Flow Rate FiO2 07/13/16 16:58 CPAP/BIPAP 07/13/16 16:12 79 22 97 07/13/16 14:57 36.2 132/76 07/11/16 16:24 0.50 Intake and Output 07/12/16 07/12/16 07/13/16 Cumulative From/Thru 15:00 23:00 07:00 07/10/16 16:49 - 07/13/16 06:29 Intake Total 472 ml 300 ml 3355 ml Output Total 550 ml Balance 472 ml 300 ml 2805 ml Intake Oral 472 ml 300 ml 1972 ml IV Total 1383 ml Output Urine Total 550 ml # Voids 3 2 10 Exam General: Alert, Oriented x 3, Cooperative, No Acute Distress Head: Normal Eyes: Scleral Anicteric Nose: Mucous Membr Moist/[place] Mouth: Mucous Membr Moist/[place] Neck: Supple Chest & Lungs: Chest Wall Normal, Expiratory/inspiratory wheezes bilat (worse than yesterday) Cardiovascular: Regular Rate/Rhythm Abdomen: Non-tender, Non-distended, Normoactive bowel tones, Soft Extremities: No cyanosis/clubbing/edema bilat Neurological: Grossly Neurologically Intact, Normal Speech IVs and Medications Medications Reviewed: Medications were reviewed in detail Lab and Diagnostics Result Diagram: 07/12/16 0640 07/11/16 0648 Microbiology Microbiology [facility] INFLUENZA RAPID AG SCREEN Final 07/10/16-2005 RESULT POSITIVE FOR FLU A NEGATIVE FOR FLU B This rapid assay is a screen test only for Influenza A&B and does not definitively rule out the presence of FLU A & B or other respiratory viral pathogens. The assay's sensitivity varies on the specimen type submitted. Nasal washes are optimum. Recommend respiratory viral cultures and DFA to confirm negative screens and rule out other viral pathogens. Per CDC, the sensitivity of this method is approximately 50% for H1N1. A negative result does NOT rule out Novel H1N1 (Swine Flu) TIME CALLED: 2004 FLOOR/DOCTOR: SED/JJ Busch X-Rays, CTs and MRIs PROCEDURE: X-RAY CHEST ONE VIEW, PORTABLE ([id number]) INDICATIONS: SHORT OF BREATH TECHNIQUE: One view of the chest was acquired. COMPARISON: [facility], CR, XR CHEST 1VW (PORTABLE), 01/23/2016, 8: 52. FINDINGS: Surgical changes and devices: None. Lungs and pleura: No pleural effusions or pneumothorax. Lung volumes are low with bilateral perihilar atelectasis versus pneumonia. Mediastinum: Mediastinal contours appear normal. Heart size is normal. Bones and chest wall: No suspicious bony lesions. Overlying soft tissues appear unremarkable. IMPRESSION: Low lung volumes, with bilateral perihilar atelectasis versus pneumonia. Dictated by: Katty Nicolas M.D. on 07/10/2016 at 18:01 Approved by: Katty Nicolas M.D. on 07/10/2016 at 18:02 Assessment & Plan 85-year-old female patient with history of atrial fibrillation on chronic anticoagulation, CHF, hypothyroidism and hypertension presented to the ER for worsening cough and shortness of breath. Patient reports that approximately 1-1 /2 weeks ago she began experiencing chest tightness, fatigue, worsening dry cough. She states that she was seen by her primary care provider this morning and had an x-ray, but states she was not informed of any pneumonia present on the chest x-ray. Patient reports that she went home to [place] but noticed that she was having increasing difficulty with her breathing and asked her radiology manager to bring her to the ER. # Acute influenza A, present on admission, ongoing - Positive rapid flu swab for Flu A - continue with Tamiflu 75 mg twice a day for 10 doses - Supportive care # pulmonary congestion and SOB initially Suspected acute community acquired pneumonia but likely 2ndry to acute influenza noted above. present on admission - Bacterial pneumonia clinically appears unlikely. No leukocytosis, normal lactic acid, normal pro-calcitonin - Patient received azithromycin and ceftriaxone on admission - hold Abx and f/u clinically - Legionella and strep pneumoniae negative - c/w DuoNeb while awake, albuterol nebs every 2 hours when necessary - c/w short course of Prednisone (started on 07/12) # Chronic atrial fibrillation, presumed stable - Patient is managed by Dr. Doug Crow as outpatient - Continue home dose of carvedilol - Continue warfarin, pharmacy to dose - f/u daily INR (currently subtherapeutic) # Chronic congestive heart failure, presumed stable - Outpatient records demonstrate most recent echo was 06/04/2016. Demonstrated EF of 35-40%. Moderate global hypokinesis left ventricle. Left and right atrium dilated. Moderate MR, mild aortic stenosis, moderate aortic regurgitation. - We will continue to monitor for fluid overload # Chronic hypothyroidism, presumed stable - Continue home dose of levothyroxine # Chronic hypertension, presumed stable - Continue home dose of Entresto # GERD - Continue home dose of pantoprazole Dispo: 1-2 days VTE Prophylaxis: Theraputic Anticoag with Warfarin Resuscitation Status: Limited Interventions Limited Interventions: Compressions, Cardioversion/Defibrillation Time spent 25 min Osvaldo Cho Jul 13, 2016 17:17
[2016-07-14] VITALS (10 sets, daily range): BP systolic 100–138; BP diastolic 68–76; PULSE 57–98; RESP 18–22; O2SAT 92–97
--- NOTE | 2016-07-14 02:29 | NUR ---
Activity Pt ambulated independently down [facility] and back, complained of some SOB with walking. Pt returned to bed and took breathing tx and medications. Left room with call light at bedside.
[2016-07-14 06:25] LABS: INR 1.72 ratio
--- NOTE | 2016-07-14 07:15 | PCM.PHAPRO ---
Progress Warfarin Management by Pharmacy: -Indication: afib -Inr Goal: 2-3 -concurrent anticoagulation: none -Home Dose: warfarin 4mg -Coag Trends: -Jul 11-Jul 12-Jul 13-Jul 14-Jul 1.73 1.62 1.66 1.72 1.72 -0.11 0.04 0.06 4 4 4 4MG 5MG -Plan: will give one time dose this evening of warfarin 5mg Milena Dee [facility] Jul 14, 2016 07:15
[2016-07-14] MEDS: Sacubitril/Valsartan (Entresto 49 mg-51 mg Tablet) PO SCH ×2 (08:00→20:30)
[2016-07-14] MEDS: Pantoprazole 40 mg ER24 Tablet PO SCH (08:00)
[2016-07-14] MEDS: predniSONE 20 mg Tablet PO SCH (08:02)
--- NOTE | 2016-07-14 09:25 | NUR ---
PARESH signed DEENA Castillo
[2016-07-14] MEDS: Albuterol-Ipratropium 3 mL Inhalation Solution NEB SCH ×5 (09:32→19:40)
--- NOTE | 2016-07-14 15:39 | PCM.PNMED ---
Subjective Date of Service Jul 14, 2016 Subjective says feeling better today but still with chest tightness and cough Exam Vital Signs Vital Sign - Last Date Time Temp Pulse Resp B/P Pulse Ox O2 Delivery O2 Flow Rate FiO2 07/14/16 14:02 36.4 58 19 100/68 92 Room Air 07/11/16 16:24 0.50 Intake and Output 07/13/16 07/13/16 07/14/16 Cumulative From/Thru 15:00 23:00 07:00 07/10/16 16:49 - 07/14/16 06:38 Intake Total 1300 ml 350 ml 5005 ml Output Total 850 ml 1400 ml Balance 1300 ml -500 ml 3605 ml Intake Oral 1300 ml 350 ml 3622 ml IV Total 1383 ml Output Urine Total 850 ml 1400 ml # Voids 3 13 Exam General: Alert, Cooperative, No Acute Distress Head: Normal Eyes: Scleral Anicteric Nose: Mucous Membr Moist/[place] Mouth: Mucous Membr Moist/[place] Neck: Supple Chest & Lungs: Chest Wall Normal, Expiratory/inspiratory wheezes bilat ( improved compared to yesterday) Cardiovascular: Regular Rate/Rhythm Abdomen: Non-tender, Non-distended, Normoactive bowel tones, Soft Extremities: No cyanosis/clubbing/edema bilat Neurological: Grossly Neurologically Intact, Normal Speech IVs and Medications Medications Reviewed: Medications were reviewed in detail Lab and Diagnostics Result Diagram: 07/12/1640 07/11/16 0648 Microbiology Microbiology [facility] INFLUENZA RAPID AG SCREEN Final 07/10/16-2005 RESULT POSITIVE FOR FLU A NEGATIVE FOR FLU B This rapid assay is a screen test only for Influenza A&B and does not definitively rule out the presence of FLU A & B or other respiratory viral pathogens. The assay's sensitivity varies on the specimen type submitted. Nasal washes are optimum. Recommend respiratory viral cultures and DFA to confirm negative screens and rule out other viral pathogens. Per CDC, the sensitivity of this method is approximately 50% for H1N1. A negative result does NOT rule out Novel H1N1 (Swine Flu) TIME CALLED: 2004 FLOOR/DOCTOR: SRI/JJ Busch X-Rays, CTs and MRIs PROCEDURE: X-RAY CHEST ONE VIEW, PORTABLE ([id number]) INDICATIONS: SHORT OF BREATH TECHNIQUE: One view of the chest was acquired. COMPARISON: Located Within [facility], CR, XR CHEST 1VW (PORTABLE), 01/23/2016, 8: 52. FINDINGS: Surgical changes and devices: None. Lungs and pleura: No pleural effusions or pneumothorax. Lung volumes are low with bilateral perihilar atelectasis versus pneumonia. Mediastinum: Mediastinal contours appear normal. Heart size is normal. Bones and chest wall: No suspicious bony lesions. Overlying soft tissues appear unremarkable. IMPRESSION: Low lung volumes, with bilateral perihilar atelectasis versus pneumonia. Dictated by: Katty Nicolas M.D. on 07/10/2016 at 18:01 Approved by: Katty Nicolas M.D. on 07/10/2016 at 18:02 Assessment & Plan 85-year-old female patient with history of atrial fibrillation on chronic anticoagulation, CHF, hypothyroidism and hypertension presented to the ER for worsening cough and shortness of breath. Patient reports that approximately 1-1 /2 weeks ago she began experiencing chest tightness, fatigue, worsening dry cough. She states that she was seen by her primary care provider this morning and had an x-ray, but states she was not informed of any pneumonia present on the chest x-ray. Patient reports that she went home to [place] but noticed that she was having increasing difficulty with her breathing and asked her agriculture sales account manager to bring her to the ER. # Acute influenza A, present on admission, ongoing - Positive rapid flu swab for Flu A - continue with Tamiflu 75 mg twice a day for 10 doses - Supportive care # pulmonary congestion and SOB initially Suspected acute community acquired pneumonia but likely 2ndry to acute influenza noted above. present on admission - Bacterial pneumonia clinically appears unlikely. No leukocytosis, normal lactic acid, normal pro-calcitonin - Patient received azithromycin and ceftriaxone on admission - hold Abx and f/u clinically - Legionella and strep pneumoniae negative - c/w DuoNeb while awake, albuterol nebs every 2 hours when necessary - c/w short course of Prednisone (started on 07/12) # Chronic atrial fibrillation, presumed stable - Patient is managed by Dr. Doug Crow as outpatient - Continue home dose of carvedilol - Continue warfarin, pharmacy to dose - f/u daily INR (currently subtherapeutic) # Chronic congestive heart failure, presumed stable - Outpatient records demonstrate most recent echo was 06/04/2016. Demonstrated EF of 35-40%. Moderate global hypokinesis left ventricle. Left and right atrium dilated. Moderate MR, mild aortic stenosis, moderate aortic regurgitation. - We will continue to monitor for fluid overload # Chronic hypothyroidism, presumed stable - Continue home dose of levothyroxine # Chronic hypertension, presumed stable - Continue home dose of Entresto # GERD - Continue home dose of pantoprazole Dispo: likely home in am VTE Prophylaxis: Theraputic Anticoag with Warfarin Resuscitation Status: Limited Interventions Limited Interventions: Compressions, Cardioversion/Defibrillation Osvaldo Cho Jul 14, 2016 15:39
--- NOTE | 2016-07-14 16:30 | NUR ---
Activity Pt reports continuing to feel weaker/more SOB with exertion than baseline, Pt ambulated in hallways X2 this shift wearing mask for flu precautions and took shower once tele D/C'd. Pt reported feeling slight improvement after activity/shower.
--- NOTE | 2016-07-14 16:36 | NUR ---
Social Work: Readiness for d/c Data: Pt is on day 4 of hospitalization. EMR reviewed. Pt discussed in rounds. MD states pt likely to d/c today or tomorrow. STAFFING SPECIALIST met with pt at bedside regarding d/c plan. Pt states she has been up and moving independently but that she wants to make sure that she has what she needs from [facility] before she discharges. No further d/c planning needs at this time. STAFFING SPECIALIST will continue to follow. Assessment: Pt who is independent at baseline. Plan: Pt will d/c home via POV when medically stable, likely today or tomorrow. No further d/c planning needs at this time. STAFFING SPECIALIST will continue to follow. DEENA Castillo
[2016-07-15 07:01] VITALS: BP 124/71; PULSE 60; RESP 18; O2SAT 93
[2016-07-15 08:01] LABS: INR 1.79 ratio
[2016-07-15] MEDS: Pantoprazole 40 mg ER24 Tablet PO SCH (08:12)
[2016-07-15] MEDS: predniSONE 20 mg Tablet PO SCH (08:13)
[2016-07-15] MEDS: Sacubitril/Valsartan (Entresto 49 mg-51 mg Tablet) PO SCH (08:14)
[2016-07-15 08:47] VITALS: PULSE 74; RESP 20; O2SAT 94
[2016-07-15] MEDS: Albuterol-Ipratropium 3 mL Inhalation Solution NEB SCH (08:47)
--- NOTE | 2016-07-15 10:57 | PCM.DIMED ---
Discharge Instructions Date of Service Jul 15, 2016 Dates of Hospitalization Jul 10, 2016 at 20:17 Discharge Diagnosis Discharge Diagnosis # Acute influenza A, present on admission - Post treatment with Tamiflu # Pulmonary congestion and shortness of breath initially suspected acute community acquired pneumonia but likely due to acute influenza noted above. Improving # Chronic atrial fibrillation, stable - Chronic anticoagulation with Warfarin with sub-therapeutic INR on presentation , ongoing - INR currently sub-therapeutic at 1.79 (goal INR 2-3) # Chronic congestive heart failure, presumed stable # Chronic hypothyroidism, presumed stable # Chronic hypertension, stable # GERD, stable. Diet Low fat, Low Sodium, Heart Healthy Activity No restrictions Call your provider Fever or Chills, Shortness of breath, Chest pain, Excessive diarrhea Patient Instructions Seek immediate medical attention if any new or worsening signs or symptoms occur. Follow-up plan 1. Followup with primary care provider in 3-7 days 2. Followup with [facility] in 1-2 days to recheck INR and adjust Warfarin dose as needed. Follow-up Provider: Joey Coyne MD, Masoud Jul 15, 2016 10:57
--- NOTE | 2016-07-15 11:56 | NUR ---
Discharge Reviewed d/c instructions with pt including care notes, no new prescriptions, pt signed and given originals, copies to chart. IV d/c intact, no tele. Home med from drawer returned to pt. VS stable at time of d/c. All belongings being packed by pt in room, and son is to poultry picker pt at 1300. Care continues. Addendum: 07/15/16 at 1306 by RIVKA SARABIA RN pt taken off unit via WC by HALIMA to car, son to drive pt home. All belongings taken with pt, VS stable at d/c.
--- NOTE | 2016-07-15 12:36 | NUR ---
Social Work-discharge: Data:EMR reviewed. Pt is on day 5 of hospitalization for pneumonia per H&P. Pt is medically stable for discharge today. Pt has been up independent in her room per RN notes. SW confirmed plan of return to [place] today. Pt's son to provide transport back. No other discharge needs identified. All updated and agreeable to plan. Assessment:Pt who is independent at baseline. Plan:Pt to discharge back to [place] today via POV. No other discharge needs identified. All updated and agreeable to plan. DEENA Arthur
--- NOTE | 2016-07-15 15:50 | NUR ---
spiritual care: routine (late entry) lenghty conversational visit. pt reflected on her medical situation, fear over symptoms (jemma breathlessness jemma over weekend) and impact of her diagnosis and treatment. pt reassured by staff about medication continuity as she discharges. 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
--- NOTE | 2016-07-15 16:29 | PCM.DC.MED ---
Discharge Summary Date of Service Jul 15, 2016 Dates of Hospitalization Date of Hospital Admission Jul 10, 2016 at 20:17 Date of Discharge: Jul 15, 2016 Providers: Admitting Physician: Aleena Rebolledo MD Primary Care Physician: Joey Coyne MD Attending Physician: Aleena Rebolledo MD Diagnosis at Time of Discharge Diagnosis at Time of Discharge # Acute influenza A, present on admission - Post treatment with Tamiflu # Pulmonary congestion and shortness of breath initially suspected acute community acquired pneumonia but likely due to acute influenza noted above. Improving # Chronic atrial fibrillation, stable - Chronic anticoagulation with Warfarin with sub-therapeutic INR on presentation , ongoing - INR currently sub-therapeutic at 1.79 (goal INR 2-3) # Chronic congestive heart failure, presumed stable # Chronic hypothyroidism, presumed stable # Chronic hypertension, stable # GERD, stable. Procedures XRay, CTs & MRIs PROCEDURE: X-RAY CHEST ONE VIEW, PORTABLE ([id number]) INDICATIONS: SHORT OF BREATH TECHNIQUE: One view of the chest was acquired. COMPARISON: [facility], , XR CHEST 1VW (PORTABLE), 01/23/2016, 8: 52. FINDINGS: Surgical changes and devices: None. Lungs and pleura: No pleural effusions or pneumothorax. Lung volumes are low with bilateral perihilar atelectasis versus pneumonia. Mediastinum: Mediastinal contours appear normal. Heart size is normal. Bones and chest wall: No suspicious bony lesions. Overlying soft tissues appear unremarkable. IMPRESSION: Low lung volumes, with bilateral perihilar atelectasis versus pneumonia. Dictated by: Katty Nicolas M.D. on 07/10/2016 at 18:01 Approved by: Katty Nicolas M.D. on 07/10/2016 at 18:02 Brief History As noted in H&P by Dr. Hunltey: 85-year-old female patient with history of atrial fibrillation on chronic anticoagulation, CHF, hypothyroidism and hypertension presented to the ER for worsening cough and shortness of breath. Patient reports that approximately 1-1 /2 weeks ago she began experiencing chest tightness, fatigue, worsening dry cough. She states that she was seen by her primary care provider this morning and had an x-ray, but states she was not informed of any pneumonia present on the chest x-ray. Patient reports that she went home to [place] but noticed that she was having increasing difficulty with her breathing and asked her online project manager to bring her to the ER. Patient denies any fevers, chills, sore throat , nausea, vomiting or diarrhea. Patient reports chronic constipation. Patient reports she has not consumed much food today, and notes that she only has some appetite. Patient reports that she has chronic nasal congestion and sneezing which she uses nasal saline drops to assist. Patient denies any headache, otalgia, or myalgias. Patient does report that her chest wall has been causing her pain, which she attributes to her constant coughing. She reports that she feels short of breath but denies needing supplemental oxygen at home. Vital signs in the ER, temperature 38.3, pulse 109, respiratory rate 30, blood pressure 143/90, pulse ox 95 on nasal cannula 2 L Hospital Course # Acute influenza A, present on admission, ongoing - Positive rapid flu swab for Flu A - Treated with Tamiflu 75 mg twice a day for 9 doses # pulmonary congestion and SOB initially Suspected acute community acquired pneumonia but likely 2ndry to acute influenza noted above. present on admission - Bacterial pneumonia clinically appears unlikely. No leukocytosis, normal lactic acid, normal pro-calcitonin - Patient received azithromycin and ceftriaxone on admission - hold Abx and f/u clinically - Legionella and strep pneumoniae negative - Treated with DuoNeb while awake, albuterol nebs every 2 hours when necessary - also treated with short course of Prednisone (started on 07/12 to 07/15/16) - by day of d/c lung exam is only notable for mild expiratory wheeze bilat. she denies any further SOB and expresses eagerness to go home. # Chronic atrial fibrillation, presumed stable - Patient is managed by Dr. Doug Crow as outpatient - Continue home dose of carvedilol - Continue warfarin, pharmacy to dose - f/u daily INR (currently subtherapeutic) # Chronic congestive heart failure, presumed stable - Outpatient records demonstrate most recent echo was 06/04/2016. Demonstrated EF of 35-40%. Moderate global hypokinesis left ventricle. Left and right atrium dilated. Moderate MR, mild aortic stenosis, moderate aortic regurgitation. # Chronic hypothyroidism, presumed stable - Continue home dose of levothyroxine # Chronic hypertension, presumed stable - Continue home dose of Entresto # GERD - Continue home dose of pantoprazole Exam Vital Signs (Last) Date Time Temp Pulse Resp B/P Pulse Ox O2 Delivery O2 Flow Rate FiO2 07/15/16 08:47 74 20 94 Room Air 07/15/16 07:01 36.6 124/71 07/11/16 16:24 0.50 Test 07/10/16 17:23 07/11/16 06:48 07/11/16 14:00 07/12/16 06:40 D-Dimer < 0.5mg/L (<0.50) Hemoglobin A1c 5.6% (4.8-5.6) Lactic Acid Level 1.1mmol/L (0.4-2.0) Magnesium Level 1.9mg/dL (1.6-2.6) Troponin T < 0.010ug/L (0.0-0.011) Pro-B-Type Natriuretic Peptide 6766pg/mL (0-738) Sodium Level 140mEq/L (134-144) Potassium Level 4.0mEq/L (3.5-5.2) Chloride Level 104mEq/L (97-108) Carbon Dioxide Level 25mmol/L (18-29) Blood Urea Nitrogen 14mg/dL (8-27) Creatinine 0.73mg/dL (0.57-1.00) Estimat Glomerular Filtration Rate 109mL/min (>59) Glucose Level 98mg/dL (60-99) Calcium Level 8.3mg/dL (8.5-10.1) Total Bilirubin 0.3mg/dL (0.0-1.2) Aspartate Amino Transf (AST/SGOT) 18U/L (0-50) Alanine Aminotransferase (ALT/SGPT) 11U/L (0-32) Alkaline Phosphatase 38U/L (25-165) Total Protein 5.6g/dL (6.4-8.4) Albumin 3.7g/dL (3.4-5.0) Urine Color Yellow (YELLOW) Urine Appearance Clear (CLEAR,HAZY) Urine pH 6.0 (5.0-8.0) Urine Specific [place] 1.020 (1.003-1.035) Urine Protein Negativemg/dL (NEG,TRACE) Urine Glucose (UA) Negativemg/dL (NEGATIVE) Urine Ketones Negativemg/dL (NEGATIVE) Urine Occult Blood Trace (NEGATIVE) Urine Nitrite Negative (NEGATIVE) Urine Bilirubin Negative (NEGATIVE) Urine Urobilinogen Normalmg/dL (NORMAL) Urine Leukocyte Esterase Negative (NEGATIVE) Urine RBC 0-2/hpf (0-2) Urine WBC 0-5/hpf (0-5) Urine Epithelial Cells Occasional/hpf (NONE-MOD) Urine Crystals None seen (NONE SEEN) Urine Bacteria Few/hpf (NONE-FEW) Urine Hyaline Casts None/lpf (NONE) Urine Granular Casts None seen (NONE SEEN) Urine Waxy Casts None seen (NONE SEEN) Urine Red Blood Cell Casts None seen (NONE SEEN) Urine White Blood Cell Casts None seen (NONE SEEN) Urine Mucus None seen (None Seen) Urine Trichomonas None seen (NONE SEEN) Urine Yeast None (NONE SEEN) Urinalysis Comment None Urine Culture Reflexed Not indicated Urine Legionella pneumophilia Ag Negative (Negative) White Blood Count 4.4th/mm3 (3.8-10.1) Red Blood Count 3.59mil/mm3 (3.90-5.20) Hemoglobin 11.6g/dL (12.0-15.6) Hematocrit 35.6% (35.0-46.0) Mean Corpuscular Volume 99.2fL (81-100) Mean Corpuscular Hemoglobin 32.3pg (27.0-35.0) Mean Corpuscular Hemoglobin Concent 32.6% (32.0-37.0) Red Cell Distribution Width 12.3% (12.3-15.4) Platelet Count 105bil/L (150-400) Neutrophils (%) (Auto) 50.9% (40-74) Lymphocytes (%) (Auto) 32.5% (14-46) Monocytes (%) (Auto) 14.3% (4-12) Eosinophils (%) (Auto) 1.6% (0-5) Basophils (%) (Auto) 0.5% (0-3) Test 07/13/16 05:43 07/15/16 07:20 Procalcitonin 0.09ng/mL (0.00-0.08) Prothrombin Time 19.4sec (8.1-12.5) Prothromb Time International Ratio 1.79ratio Microbiology Results Microbiology [facility] INFLUENZA RAPID AG SCREEN Final 07/10/16-2005 RESULT POSITIVE FOR FLU A NEGATIVE FOR FLU B This rapid assay is a screen test only for Influenza A&B and does not definitively rule out the presence of FLU A & B or other respiratory viral pathogens. The assay's sensitivity varies on the specimen type submitted. Nasal washes are optimum. Recommend respiratory viral cultures and DFA to confirm negative screens and rule out other viral pathogens. Per CDC, the sensitivity of this method is approximately 50% for H1N1. A negative result does NOT rule out Novel H1N1 (Swine Flu) TIME CALLED: 2004 FLOOR/DOCTOR: SED/JJ Busch Discharge Medications Discharge Medications Carvedilol (Carvedilol) 25 Mg Tablet 37.5 MG PO BID (Reported) 1.5 tablets at noon and at hs w/ food Levothyroxine (Levothyroxine) 75 Mcg Tablet 75 MCG PO QAM (Reported) Multivit with Calcium,Iron,Min (Therapeutic M) 1 Each Tablet 1 EACH PO DAILY ( Reported) Pantoprazole DR (Pantoprazole DR) 40 Mg Tablet.dr 40 MG PO QAM (Reported) Potassium Chloride (Potassium Chloride) 10 Meq Tab.er.prt 10 MEQ PO DAILY ( Reported) TAKE WITH FOOD Sacubitril/Valsartan (Entresto 49 mg-51 mg Tablet) 49 Mg-51 Mg Tablet 1 EACH PO BID (Reported) Warfarin Sodium (Warfarin Sodium) 4 Mg Tablet 4 MG PO DAILY (Reported) As needed Furosemide (Furosemide) 20 Mg Tab 20 MG PO DAILY PRN PRN ankle swelling ( Reported) Takes 1 tablet every 3-4 days Ibuprofen (Ibuprofen) 200 Mg Capsule 400 MG PO HS PRN PRN pa (Reported) Sodium Chloride (Saline Nasal Mist) 126 Ml Mist 2 SPRAYS NS Q2H PRN PRN Nasal Dryness (Reported) Temazepam (Temazepam) 15 Mg Capsule 15-30 MG PO HS PRN PRN For Sleep (Reported) Triamcinolone Acet (Triamcinolone Acetonide Cream) 1 Applic/0.25 Gm Cr 1 APPLIC EXT BID PRN PRN PRN (Reported) Followup Plan Disposition: Home Follow-up plan 1. Followup with primary care provider in 3-7 days 2. Followup with [facility] clinic in 1-2 days to recheck INR and adjust Warfarin dose as needed. Discharge Diet: Low fat, Low Sodium, Heart Healthy Discharge Activity: No restrictions Patient Instructions Seek immediate medical attention if any new or worsening signs or symptoms occur. Follow-up Provider: Joey Coyne MD Time spent 35 min copies to: Joey Coyne MD, Masoud Jul 15, 2016 16:29
== END 2016-07-15 12:37 | disposition home or self-care (01) | DRG 195 ==
LOC: EDBD 16:30 → SED 16:30 → MPC 20:17
PROVIDERS: ADMIT Specialist; ATTEND Specialist
DX: J10.1 Influenza due to other identified influenza virus with other respiratory manifestations (principal); I48.2 Chronic atrial fibrillation; E03.9 Hypothyroidism, unspecified; I10 Essential (primary) hypertension; Z79.01 Long term (current) use of anticoagulants; K21.9 Gastro-esophageal reflux disease without esophagitis; E78.5 Hyperlipidemia, unspecified; Z87.891 Personal history of nicotine dependence; I50.9 Heart failure, unspecified; B97.89 Other viral agents as the cause of diseases classified elsewhere

== ENCOUNTER 2016-11-16 10:35 | Emergency (ER) | payer MEDICARE ==
[~2016-11-16] VITALS: Ht 162.6 cm; Wt 84.1 kg
[~2016-11-16 10:35] MED LIST changes: +FUR20 PO; +IBUP200C PO; +KEN25CR EXT; -LEVO75TA36 PO; +LEVO75TA4 PO; -LOSA50TA37 PO; +MULT-140 PO; +POTA10TA38 PO; +SACU1TAB7 PO; +SODI126M NS; +WARF4TAB6 PO; -WARF5TAB7 PO
[2016-11-16 10:37] VITALS: BP 156/86; PULSE 115; RESP 16; O2SAT 96
--- NOTE | 2016-11-16 10:45 | ED.REPORT ---
HPI-Chest Pain 40 and Over Date of Service Nov 16, 2016 ED Provider: Kang Davis MD Pt is an 86 year old female with a history of A-fib, HTN, hyperlipidemia, and CHF who presents to the ED complaining of worsening A-fib onset prior to arrival. She c/o associated SOB, palpitations, shaking, weakness, diarrhea, nausea, and elevated blood pressure and pulse. She denies chest pain, diaphoresis, fever, cough, chills, and any other symptoms. Nursing Notes Stated Complaint: ACTIVE A FIB Chief Complaint: Dysrhythmia/Cardiac Nursing Notes Reviewed: Yes Allergies: Coded Allergies: No Known Allergies (Verified , 07/10/16) Scheduled Carvedilol (Carvedilol) 25 Mg Tablet 37.5 MG PO BID 1.5 tablets at noon and at hs w/ food Levothyroxine (Levothyroxine) 75 Mcg Tablet 75 MCG PO QAM Multivit with Calcium,Iron,Min (Therapeutic M) 1 Each Tablet 1 EACH PO DAILY Pantoprazole DR (Pantoprazole DR) 40 Mg Tablet.dr 40 MG PO QAM Potassium Chloride (Potassium Chloride) 10 Meq Tab.er.prt 10 MEQ PO DAILY TAKE WITH FOOD Sacubitril/Valsartan (Entresto 49 mg-51 mg Tablet) 49 Mg-51 Mg Tablet 1 EACH PO BID Warfarin Sodium (Warfarin Sodium) 4 Mg Tablet 4 MG PO DAILY Scheduled PRN Furosemide (Furosemide) 20 Mg Tab 20 MG PO DAILY PRN PRN ankle swelling Takes 1 tablet every 3-4 days Ibuprofen (Ibuprofen) 200 Mg Capsule 400 MG PO HS PRN PRN pa Sodium Chloride (Saline Nasal Mist) 126 Ml Mist 2 SPRAYS NS Q2H PRN PRN Nasal Dryness Temazepam (Temazepam) 15 Mg Capsule 15-30 MG PO HS PRN PRN For Sleep Triamcinolone Acet (Triamcinolone Acetonide Cream) 1 Applic/0.25 Gm Cr 1 APPLIC EXT BID PRN PRN PRN General Time Seen by MD: 10:41 Chief Complaint Other (A-fib) Hx Obtained From: Patient Arrived By: Walk-in Sudden in Onset?: No Onset Occurred: Just prior to arrival Symptom Duration: Since onset Severity: Current: No pain currently Severity: Maximum: No pain Recent Healthcare: No recent doctor visit, No recent hospitalization Similar Sx Previous: Yes Past Medical History Past Medical History Notes: PCP: Dr. 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 Alcohol Use: Denies alcohol use Drug Use: Denies drug use Other Social History: Good social support Ambulatory Status Independent Review of Systems + Elevated blood pressure and pulse Constitutional: Reports: Weakness - generalized, Denies: Chills, Fever Respiratory: Reports: Shortness of breath, Denies: Non-productive cough Cardiovascular: Reports: Palpitations, Denies: Chest pain GI: Reports: Diarrhea, Nausea, Denies: Vomiting Skin: Denies Diaphoresis Neurologic: Reports: Shaking Complete sys rev & neg: except as marked. Physical Exam Initial Vital Signs Vital Signs (First) Date Time Temp Pulse Resp B/P Pulse Ox O2 Delivery O2 Flow Rate FiO2 11/16/16 10:37 115 16 156/86 96 Room Air 11/16/16 10:46 36.6 Initial VS: Reviewed Head / Eyes: Atraumatic, Normocephalic Neck: Supple, Full range of motion Extremities: Vascular intact, Neuro intact Skin: Warm, Dry, No cyanosis Neurologic: Alert, Oriented, Nonfocal Psychiatric: Mood/affect normal, Behavior normal General/Constitutional: Awake, Alert, Cooperative Respiratory / Chest: Atraumatic, Breath sounds NL, Breath sounds = bilat Cardiovascular: Heart rate NL, Regular rhythm, Heart sounds NL Lower Ext Edema: Positive: Bilateral 1+ Heart rate is irregularly irregular Abdomen: Atraumatic, Soft, Non-tender Interpretation & Diagnostics ECG Interpretation ECG Interpretation: Atrial fibrillation with a rate of 103. LVH with secondary repolarization abnormality. Anterior infarct, old. Time: 10:44 Interpreted by: ED physician Re-Eval/Medical Decision Source of Hx: Old records Time of Eval: 11:00 Re-Evaluation/Progress Note: Pt rechecked. Informed pt of plan for discharge. Pt understands and agrees with plan for discharge. F/U instructions and RTER warnings given. All questions addressed. Counseled Regarding: Diagnosis, Lab results, Need for follow-up, When/why to return to ED Discharge & Departure Primary Impression: Atrial fibrillation Additional Impression: Hypertension Disposition: Home Discharge Condition All VS Reviewed: Yes Condition: Stable Patient Instructions: A-fib (Atrial Fibrillation) (ED) Additional Instructions: No dangerous condition is discovered today. I recommended you continue your regular medication as prescribed. Follow-up in the clinic next week if your symptoms are not well controlled. Specifically, I mean your blood pressure and heart rate. If you find a high blood pressure reading, I recommend that you just simply check it the next day. If it persists elevated, follow-up in the clinic within a few days. Referrals: Joey Coyne MD (PCP) [facility] Attestation Portions of this note were transcribed by Tamika Garcia. I, Dr. Davis personally performed the history, physical exam and medical decision-making; I reviewed and confirmed the accuracy of the information in the transcribed note. Signed by: Samia Pina, 11/16/16 and 12:50. copies to: Joey Coyne MD, Kirk H MD Nov 16, 2016 10:45 Tamika King Nov 16, 2016 10:53
[2016-11-16 11:29] LABS: BASOPHILS % (AUTO) 0.2 % (0-3); EOSINOPHILS % (AUTO) 1.6 % (0-5); MONOCYTES % (AUTO) 9.7 % (4-12); Mean Corpuscular Hemoglobin 31.6 pg (27.0-35.0); Mean Corpuscular Volume 93.9 fL (81-100); NEUTROPHILS % (AUTO) 62.7 % (40-74); Platelet Count 138 bil/L (150-400)
[2016-11-16 11:31] VITALS: BP 151/84; PULSE 90; RESP 18; O2SAT 95
[2016-11-16 11:33] LABS: INR 2.23 ratio
[2016-11-16 11:41] LABS: TROPONIN T 0.01 ug/L (0.0-0.011)
[2016-11-16 11:52] LABS: Magnesium 1.7 mg/dL (1.6-2.6)
== END 2016-11-16 11:27 | disposition home or self-care (01) ==
LOC: SED 10:35
DX: I11.0 Hypertensive heart disease with heart failure (principal); I50.9 Heart failure, unspecified; I48.91 Unspecified atrial fibrillation; E78.5 Hyperlipidemia, unspecified; R53.1 Weakness; R19.7 Diarrhea, unspecified; R11.0 Nausea; Z79.01 Long term (current) use of anticoagulants; Z87.891 Personal history of nicotine dependence